=== PATIENT | female | born 1985 | race African-American/Black ===

== ENCOUNTER → 2016-08-12 | Outpatient (CLI) | payer OTHER ==
[~2016-08-12] MED LIST: FERROUS SULFAT325 MG PO; IRON18 MG PO; MEGACE20 MG PO; MONO-LINYAH1 EACH PO; MOTRIN600 MG PO; PRENATAL TABLE1 EAC3 PO; TYLENOL REGULA325 MG PO
== END | disposition home or self-care (01) ==
LOC: MRI 10:50 → RAD 11:00 → MRI 11:00
DX: D25.9 Leiomyoma of uterus, unspecified (principal); N93.9 Abnormal uterine and vaginal bleeding, unspecified
CPT/HCPCS: 72197

== ENCOUNTER 2016-09-14 05:32 | Inpatient (IN) | payer OTHER ==
[~2016-09-14] VITALS: Ht 170.2 cm; Wt 129.0 kg
[2016-09-14 00:25] VITALS: BP 106/67
[~2016-09-14 05:32] MED LIST changes: +IRON325 M1 PO
[2016-09-14 06:04] VITALS: BP 134/75
[2016-09-14 12:40] VITALS: BP 122/62
[2016-09-14 15:59] VITALS: BP 131/84
[2016-09-14 19:27] VITALS: BP 110/66
[2016-09-15 00:25] VITALS: BP 100/67
[2016-09-15 04:00] VITALS: BP 100/56
[2016-09-15 06:46] LABS: HEMATOCRIT 28.2 % (36.0-46.0); MCH 21.4 PG (29.0-34.0); MCHC 30.1 G/DL (30.0-36.0); MEAN PLAT.VOLUME 8.9 uM^3 (9.5-12.4); PLATELET COUNT 364 K/uL (156-360); RBC DIS.WIDTH-SD 49.1 % (39-53); RED BLOOD COUNT 3.97 M/uL (3.80-5.20)
[2016-09-15 06:49] LABS: WHITE BLOOD COUNT 14.3 K/uL (4.1-10.2)
[2016-09-15 07:33] VITALS: BP 109/62
[2016-09-15 15:02] VITALS: BP 121/72
[2016-09-15 19:20] VITALS: BP 113/69
[2016-09-16 00:25] VITALS: BP 109/61
[2016-09-16 04:50] VITALS: BP 113/70
[2016-09-16 07:35] VITALS: BP 130/78
[2016-09-16 08:02] VITALS: BP 118/75
[2016-09-16] MEDS ORDERED: ENDOCET 5-3251 EACH PO (11:46)
[2016-09-16] MEDS ORDERED: METRONIDAZOLE500 MG PO (11:46)
[2016-09-16] MEDS ORDERED: MEGACE20 MG PO (11:46)
[2016-09-16] MEDS ORDERED: IBUPROFEN800 MG PO (11:46)
== END 2016-09-16 13:56 | disposition home or self-care (01) | DRG 749 ==
LOC: 2SOUTH → 2EASTP 05:32 → 2SOUTH 08:45 → EDSTATUS 10:38 → 2SOUTH 10:39 → 2WEST 12:39 → 2SOUTH 14:05 → SDC 15:20 → 2EASTP 17:03
PROVIDERS: Obstetrics & Gynecology Obstetrics
DX: N92.0 Excessive and frequent menstruation with regular cycle (principal); Z68.41 Body mass index [BMI] 40.0-44.9, adult; D25.9 Leiomyoma of uterus, unspecified; N76.0 Acute vaginitis; E66.9 Obesity, unspecified; D64.9 Anemia, unspecified
CPT/HCPCS: 36415; 85027; 86850; 86860; 86870; 86880; 86900; 86901; 86905; 86920; 86999; G0378; J0330; J0690; J1100; J1170; J1885; J2250; J2405; J2710; J3010; J7120

== ENCOUNTER 2016-09-17 15:38 | Emergency (ER) | payer OTHER ==
[~2016-09-17] VITALS: Ht 170.2 cm; Wt 141.5 kg
[~2016-09-17 15:38] MED LIST changes: +ENDOCET 5-3251 EACH PO; +IBUPROFEN800 MG PO; +METRONIDAZOLE500 MG PO
[2016-09-17 16:07] VITALS: BP 126/78
== END 2016-09-17 16:08 | disposition home or self-care (01) ==
LOC: EME → EDBD 15:38 → EME 16:08
DX: Z48.816 Encounter for surgical aftercare following surgery on the genitourinary system (principal)
CPT/HCPCS: 99281; 99283

== ENCOUNTER 2016-11-15 06:08 | Emergency (ER) | payer OTHER ==
[~2016-11-15] VITALS: Ht 177.8 cm; Wt 135.2 kg
[2016-11-15 07:24] LABS: EOSINOPHIL COUNT 0.5 K/uL (0-0.3); HEMATOCRIT 34.9 % (36.0-46.0); IMMATURE GRANULOCYTE (%) 0.2 % (0.0-0.7); LYMPHOCYTE COUNT 4.2 K/uL (1.0-2.8); MCH 23.4 PG (29.0-34.0); MCHC 31.2 G/DL (30.0-36.0); MCV 74.9 FL (83-99); MEAN PLAT.VOLUME 9.2 uM^3 (9.5-12.4); MONOCYTE (%) 5.5 % (3-12); MONOCYTE COUNT 0.5 K/uL (0-0.8); PLATELET COUNT 374 K/uL (156-360); QUANTITATIVE HCG < 4.0 MIU/ML; RBC DIS.WIDTH-CV 19.1 % (11.8-14.6); RED BLOOD COUNT 4.66 M/uL (3.80-5.20); WHITE BLOOD COUNT 9.2 K/uL (4.1-10.2)
[2016-11-15 07:42] LABS: ANION GAP 7 MEQ/L (2-14); CHLORIDE 107 MEQ/L (99-109); GFR ESTIMATE (CALCULATED) > 59 mL/min/; GLUCOSE 103 mg/dL (70-99); POTASSIUM 3.7 MEQ/L (3.7-5.4); SAMPLE HEMOLYSIS CHECK 0; SAMPLE ICTERIC CHECK 0; SAMPLE LIPEMIA CHECK 0; SODIUM 140 MEQ/L (136-147); UREA NITROGEN (BUN) 9 mg/dL (9-23)
[2016-11-15] MEDS ORDERED: TYLENOL WITH C1 EACH PO (07:51)
[2016-11-15] MEDS ORDERED: MEGACE40 MG PO (08:39)
[2016-11-15 10:32] VITALS: BP 121/80
== END 2016-11-15 10:33 | disposition home or self-care (01) ==
LOC: EME 06:08
PROVIDERS: Emergency Medicine
DX: N93.8 Other specified abnormal uterine and vaginal bleeding (principal); G89.29 Other chronic pain; M54.5 Low back pain; D25.9 Leiomyoma of uterus, unspecified
CPT/HCPCS: 80048; 84702; 85025; 99281; 99284

== ENCOUNTER 2016-12-14 09:27 | Emergency (ER) | payer OTHER ==
[~2016-12-14] VITALS: Ht 167.6 cm; Wt 137.0 kg
[~2016-12-14 09:27] MED LIST changes: +MEGACE40 MG PO; +TYLENOL WITH C1 EACH PO
[2016-12-14 10:19] LABS: HEMATOCRIT 33.4 % (36.0-46.0); MCH 23.7 PG (29.0-34.0); MCHC 30.8 G/DL (30.0-36.0); MEAN PLAT.VOLUME 8.8 uM^3 (9.5-12.4); PLATELET COUNT 364 K/uL (156-360); RBC DIS.WIDTH-CV 16.7 % (11.8-14.6); RBC DIS.WIDTH-SD 47.2 % (39-53); RED BLOOD COUNT 4.34 M/uL (3.80-5.20); WHITE BLOOD COUNT 10.9 K/uL (4.1-10.2)
[2016-12-14 10:28] LABS: D-DIMER ELISA 0.51 mg/L FEU (< 0.57)
[2016-12-14 10:32] LABS: CHLORIDE 109 mEq/L (99-109); SODIUM 139 mEq/L (136-147)
[2016-12-14 10:34] LABS: GLUCOSE 88 mg/dL (70-99)
[2016-12-14 10:35] LABS: ANION GAP 8 MEQ/L (2-14)
[2016-12-14 10:38] LABS: GFR ESTIMATE (CALCULATED) > 59 mL/min/; UREA NITROGEN (BUN) 13 mg/dL (9-23)
[2016-12-14 10:42] LABS: TROP-I INTERPRETATION NEGATIVE; TROPONIN-I < 0.01 ng/mL (0.0-0.30)
[2016-12-14] MEDS ORDERED: ZITHROMAX Z-PA250 MG PO (12:00)
[2016-12-14 13:41] VITALS: BP 147/99
== END 2016-12-14 13:45 | disposition home or self-care (01) ==
LOC: EME 09:27
PROVIDERS: Emergency Medicine
DX: J40 Bronchitis, not specified as acute or chronic (principal); R07.81 Pleurodynia
CPT/HCPCS: 71275; 80048; 84484; 85027; 85379; 93005; 99281; 99284

== ENCOUNTER 2018-03-06 01:06 | Emergency (ER) | payer OTHER ==
[~2018-03-06] VITALS: Ht 170.2 cm; Wt 138.5 kg
[~2018-03-06 01:06] MED LIST changes: +ZITHROMAX Z-PA250 MG PO
[2018-03-06] MEDS ORDERED: BENADRYL25 MG PO (03:02)
[2018-03-06] MEDS ORDERED: PREDNISONE50 MG PO (03:02)
[2018-03-06 03:17] VITALS: BP 112/75
== END 2018-03-06 03:19 | disposition home or self-care (01) ==
LOC: EME 01:06
DX: R22.42 Localized swelling, mass and lump, left lower limb (principal); L53.9 Erythematous condition, unspecified; T63.481A Toxic effect of venom of other arthropod, accidental (unintentional), initial encounter; S90.862A Insect bite (nonvenomous), left foot, initial encounter; F43.10 Post-traumatic stress disorder, unspecified; Z98.890 Other specified postprocedural states
CPT/HCPCS: 99281; 99284; J7512